=== PATIENT | male | born 1985 | race Caucasian/White ===

== ENCOUNTER → 2017-04-14 | Outpatient (CLI) | payer BC ==
[~2017-04-14] MED LIST: CELEBREX200 MG PO; Vicodin,Lortab 5/500 PO; WELLBUTRIN SR200 MG PO
== END | disposition home or self-care (01) ==
LOC: NUC 09:51
DX: R10.9 Unspecified abdominal pain (principal); R14.0 Abdominal distension (gaseous)
CPT/HCPCS: 78226; A9537